=== PATIENT | female | born 1980 | race Caucasian/White ===

== ENCOUNTER 2017-01-16 15:26 | Observation (INO) | payer BC, OTHER ==
[~2017-01-16] VITALS: Ht 175.3 cm; Wt 55.0 kg
[2017-01-16] MEDS ORDERED: TOPI200T25 PO (15:58)
[2017-01-16] MEDS ORDERED: ARIP10TA13 PO (15:58)
[2017-01-16] MEDS ORDERED: TRAZ150T68 PO (15:58)
[2017-01-16] MEDS ORDERED: TRAZ300T2 PO (15:58)
[2017-01-16] MEDS ORDERED: FLUT15.88 NS (15:59)
[2017-01-16] MEDS ORDERED: LORA1TAB PO (15:59)
[2017-01-16 16:25] LABS: BLOOD UREA NITROGEN 20 mg/dL (7-18)
[2017-01-16 16:27] LABS: DAU SCREEN DISCLAIMER
[2017-01-16 16:27] LABS: ACETAMINOPHEN < 2 mcg/mL (10-30)
[2017-01-16] MEDS ORDERED: POLYETHYLENE GLYCOL 17 GM PACKET PO PRN (18:00)
[2017-01-16] MEDS ORDERED: DOCUSATE 100 MG CAPSULE PO PRN (18:00)
[2017-01-16] MEDS ORDERED: BISACODYL 10 MG SUPP PR PRN (18:00)
[2017-01-16] MEDS ORDERED: ACETAMINOPHEN 500 MG TABLET ONE (20:44)
[2017-01-16] MEDS ORDERED: ACETAMINOPHEN 500 MG TABLET PO ONE (21:00)
[2017-01-16] MEDS: ARIPIPRAZOLE 10 MG TABLET PO SCH (22:28)
[2017-01-17] MEDS: ZIPRASIDONE 20 MG INJ IM PRN ×2 (07:00→22:40)
[2017-01-17 07:50] VITALS: BP 108/72
[2017-01-17] MEDS: ACETAMINOPHEN 325 MG TABLET PO PRN ×2 (12:12→19:48)
[2017-01-17] MEDS: ENOXAPARIN 40 MG/0.4 ML SQ SCH (16:23)
[2017-01-17 20:00] VITALS: BP 111/72
[2017-01-17] MEDS: ARIPIPRAZOLE 10 MG TABLET PO SCH (20:12)
[2017-01-18] MEDS: DIPHENHYDRAMINE 50 MG CAPSULE PO PRN ×2 (02:17→22:14)
[2017-01-18 07:17] VITALS: BP 110/64
[2017-01-18] MEDS: ENOXAPARIN 40 MG/0.4 ML SQ SCH (16:11)
[2017-01-18 19:56] VITALS: BP 111/58
[2017-01-18] MEDS: ARIPIPRAZOLE 10 MG TABLET PO SCH (20:10)
[2017-01-18 22:14] VITALS: BP 101/65
[2017-01-19 08:00] VITALS: BP 121/81
[2017-01-19] MEDS: ACETAMINOPHEN 325 MG TABLET PO PRN (10:21)
[2017-01-19 19:30] VITALS: BP 118/79
[2017-01-19] MEDS: ARIPIPRAZOLE 10 MG TABLET PO SCH (20:34)
[2017-01-19] MEDS: TRAZODONE 50MG TABLET PO SCH (20:35)
[2017-01-19] MEDS: LORazepam 1MG TABLET PO SCH (20:35)
[2017-01-19] MEDS: TOPIRAMATE 100 MG TABLET PO SCH (20:35)
[2017-01-20 07:20] VITALS: BP 100/62
[2017-01-20] MEDS: TOPIRAMATE 100 MG TABLET PO SCH ×2 (10:08→20:24)
[2017-01-20] MEDS: LORazepam 1MG TABLET PO SCH ×2 (10:08→20:24)
[2017-01-20] MEDS: FLUTICASONE NASAL SPRAY 16GM NAS SCH (17:18)
[2017-01-20 19:40] VITALS: BP 93/61
[2017-01-20] MEDS: ARIPIPRAZOLE 10 MG TABLET PO SCH (20:24)
[2017-01-20] MEDS: TRAZODONE 50MG TABLET PO SCH (20:24)
[2017-01-21] MEDS: ZIPRASIDONE 20 MG INJ IM PRN (02:32)
[2017-01-21 07:33] VITALS: BP 103/65
[2017-01-21] MEDS: TOPIRAMATE 100 MG TABLET PO SCH ×2 (07:59→21:14)
[2017-01-21] MEDS: FLUTICASONE NASAL SPRAY 16GM NAS SCH (07:59)
[2017-01-21] MEDS: DIPHENHYDRAMINE 50 MG CAPSULE PO PRN (08:00)
[2017-01-21] MEDS: LORazepam 1MG TABLET PO SCH ×2 (08:00→21:13)
[2017-01-21] MEDS ORDERED: DIPHENHYDRAMINE 50 MG CAPSULE PO PRN (19:30)
[2017-01-21] MEDS ORDERED: BISACODYL 10 MG SUPP PR PRN (19:30)
[2017-01-21] MEDS ORDERED: DOCUSATE 100 MG CAPSULE PO PRN (19:30)
[2017-01-21] MEDS ORDERED: POLYETHYLENE GLYCOL 17 GM PACKET PO PRN (19:30)
[2017-01-21 19:45] VITALS: BP 110/72
[2017-01-21] MEDS: ARIPIPRAZOLE 10 MG TABLET PO SCH (21:14)
[2017-01-21] MEDS: TRAZODONE 50MG TABLET PO SCH (21:14)
[2017-01-22 07:22] VITALS: BP 106/68
[2017-01-22] MEDS: LORazepam 1MG TABLET PO SCH ×2 (09:09→21:20)
[2017-01-22] MEDS: FLUTICASONE NASAL SPRAY 16GM NAS SCH (09:09)
[2017-01-22] MEDS: TOPIRAMATE 100 MG TABLET PO SCH ×2 (09:10→21:20)
[2017-01-22] MEDS: ENOXAPARIN 40 MG/0.4 ML SQ SCH (15:59)
[2017-01-22 20:04] VITALS: BP 109/69
[2017-01-22] MEDS: ARIPIPRAZOLE 10 MG TABLET PO SCH (21:19)
[2017-01-22] MEDS: TRAZODONE 50MG TABLET PO SCH (21:20)
[2017-01-23] MEDS: ACETAMINOPHEN 325 MG TABLET PO PRN ×2 (06:23→20:26)
[2017-01-23 07:44] VITALS: BP 104/70
[2017-01-23] MEDS ORDERED: LORazepam 0.5MG TABLET ONE (08:35)
[2017-01-23] MEDS: LORazepam 1MG TABLET PO SCH ×2 (09:00→20:25)
[2017-01-23] MEDS: FLUTICASONE NASAL SPRAY 16GM NAS SCH (09:03)
[2017-01-23] MEDS: TOPIRAMATE 100 MG TABLET PO SCH ×2 (09:03→20:25)
[2017-01-23] MEDS: ENOXAPARIN 40 MG/0.4 ML SQ SCH (14:33)
[2017-01-23 19:51] VITALS: BP 10/66
[2017-01-23] MEDS: TRAZODONE 50MG TABLET PO SCH (20:25)
[2017-01-24 07:10] VITALS: BP 104/68
[2017-01-24] MEDS: LORazepam 1MG TABLET PO SCH ×2 (08:10→21:08)
[2017-01-24] MEDS: TOPIRAMATE 100 MG TABLET PO SCH ×2 (08:10→21:09)
[2017-01-24] MEDS: FLUTICASONE NASAL SPRAY 16GM NAS SCH (08:11)
[2017-01-24] MEDS: ACETAMINOPHEN 325 MG TABLET PO PRN (08:38)
[2017-01-24] MEDS: ENOXAPARIN 40 MG/0.4 ML SQ SCH (15:31)
[2017-01-24 19:40] VITALS: BP 106/72
[2017-01-24] MEDS: TRAZODONE 50MG TABLET PO SCH (21:08)
[2017-01-25] MEDS: ACETAMINOPHEN 325 MG TABLET PO PRN (00:36)
[2017-01-25 07:10] VITALS: BP 109/71
[2017-01-25] MEDS: FLUTICASONE NASAL SPRAY 16GM NAS SCH (08:37)
[2017-01-25] MEDS: LORazepam 1MG TABLET PO SCH (08:37)
[2017-01-25] MEDS: TOPIRAMATE 100 MG TABLET PO SCH (08:37)
[2017-01-25] MEDS ORDERED: TOPI100T24 PO (11:13)
[2017-01-25] MEDS ORDERED: FLUT16SP NAS (11:13)
[2017-01-25] MEDS ORDERED: TRAZ50TA18 PO (11:13)
[2017-01-25] MEDS ORDERED: LORA-446 PO (11:13)
== END 2017-01-25 15:43 | disposition home or self-care (01) ==
LOC: ED 17:17 → EDIP 17:18 → ED 17:43 → 3E 01-17 01:33
PROVIDERS: ADMIT Internal Medicine; ATTEND Hospitalist
DX: F23 Brief psychotic disorder (principal); E11.9 Type 2 diabetes mellitus without complications; Z98.84 Bariatric surgery status; Z91.14 Patient's other noncompliance with medication regimen
CPT/HCPCS: 36415; 80048; 80307; 80329; 81001; 82040; 82962; 83880; 84439; 84443; 84703; 85025; 87086; 93970; 96372; 99285; G0378; J1650; J3486; G0480